=== PATIENT | female | born 1960 | race Hispanic/Latino ===

== ENCOUNTER → 2024-07-13 | Outpatient (CLI) | payer BC | END | disposition home or self-care (01) | LOC: RAH 11:10 | PROVIDERS: ATTEND Internal Medicine | DX: N32.89 Other specified disorders of bladder (principal); N20.0 Calculus of kidney; N39.0 Urinary tract infection, site not specified; I70.90 Unspecified atherosclerosis; Z90.49 Acquired absence of other specified parts of digestive tract; M47.815 Spondylosis without myelopathy or radiculopathy, thoracolumbar region | CPT/HCPCS: 74176 ==

== ENCOUNTER → 2025-02-24 | Outpatient (CLI) | payer BC ==
--- NOTE | 2025-02-24 22:02 | PN ---
HISTORY OF PRESENT ILLNESS: Status post CABG coursing postoperative day #3. OBJECTIVE: GENERAL: Awake, alert, female, neurologically intact. VITAL SIGNS: Stable as recorded in the medical record. CHEST: Sternum stable. Incision healed. LUNGS: Clear. EXTREMITIES: Warm and well perfused. No evidence of DVT, hematoma, or infection. ASSESSMENT AND PLAN: Status post CABG. PROBLEMS: * Coronary artery disease. Aspirin 81 mg, metoprolol 25 mg once a day. * Fluid overload. Lasix drip 5 mg an hour. This was switched to Lasix 20 mg three times per day. * DVT prophylaxis. Given Lovenox 30 mg once a day. * Acute respiratory insufficiency ____. * Disposition: Transfer to telemetry, OT, PT, and cardiac rehab. TID: [id number] RECEIPT: [id number]
--- NOTE | 2025-02-28 08:13 | HMCIMG ---
Exam Type: CT ABDOMEN/PELVIS W/O CONTRAST Clinical Information: Unspecified renal colic,Other microscopic hematuria Comparison: None CT Dose Index (CTDI): 10.20 mGy Dose Length Product (DLP): 530.00 total mGy-cm PROTOCOL: Routine noncontrast helical scanning of the abdomen and pelvis was performed at 5mm collimation. Findings: No evidence of nephro or ureterolithiasis is found. No hydronephrosis or ureteral dilatation is seen. The lung bases are clear. The stomach is unremarkable. It shows no wall thickening. No gross ulceration is seen. It is not overly distended. There are no surrounding inflammatory changes. No wall lesions are identified to suggest cancer. The spleen is unremarkable. It is not enlarged. The pancreas shows normal anatomy. It is not fatty replaced. It shows no lesions. The pancreatic duct is not dilated. The gallbladder is surgically absent. The adrenal glands are unremarkable. There is no enlargement. No lesions are noted. The liver is unremarkable. It shows no focal masses. The appendix is unremarkable. It shows no evidence of inflammation. No appendicolith is seen. The small bowel is unremarkable. There is no evidence of dilatation to suggest obstruction. No evidence of adynamic ileus is seen. There is no small bowel wall thickening to suggest enteritis. The colon is unremarkable. The urinary bladder is unremarkable. There is no wall thickening to suggest tumor or inflammation. There are no intraluminal calculi. There are no diverticula. There is no evidence of chronic bladder outlet obstruction. There is no evidence of urinary bladder distention to suggest urinary retention. The other pelvic structures are unremarkable. 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 IMPRESSION: NO RENAL STONES. NO ACUTE PATHOLOGY OR INFLAMMATION SEEN. This study was performed using dose reduction techniques to include automated exposure control and/or adjustment of the mA and/or kV according to patient size.
== END | disposition home or self-care (01) ==
LOC: RAH 14:37
PROVIDERS: ATTEND Internal Medicine
DX: N23 Unspecified renal colic (principal); R31.29 Other microscopic hematuria; S32.058A Other fracture of fifth lumbar vertebra, initial encounter for closed fracture; M43.17 Spondylolisthesis, lumbosacral region; Z90.49 Acquired absence of other specified parts of digestive tract; Z87.440 Personal history of urinary (tract) infections; X58.XXXA Exposure to other specified factors, initial encounter; Y93.89 Activity, other specified; Y92.89 Other specified places as the place of occurrence of the external cause; Y99.8 Other external cause status
CPT/HCPCS: 74176

== ENCOUNTER → 2025-07-27 | Outpatient (CLI) | payer BC ==
--- NOTE | 2025-07-28 07:03 | HMCIMG ---
EXAMINATION: COMPLETE TRANSABDOMINAL ULTRASOUND OF PELVIS. CLINICAL HISTORY: Pain. COMPARISON: CT abdomen and pelvis without contrast dated 02/24/2025. TECHNIQUE: Multiple real-time grayscale images of the pelvis were obtained with transabdominal transducer. FINDINGS: The uterus is not visualized, post hysterectomy status. Both the ovaries are not visualized, post oophorectomy status. There is no free fluid in the pelvis. IMPRESSION: Post hysterectomy and oophorectomy status. /Saw
== END | disposition home or self-care (01) ==
LOC: RAH 14:13
PROVIDERS: ATTEND Internal Medicine
DX: N39.41 Urge incontinence (principal); R10.20 Pelvic and perineal pain unspecified side; Z90.710 Acquired absence of both cervix and uterus
CPT/HCPCS: 76856